=== PATIENT | male | born 1980 | race Two or more races ===

== ENCOUNTER 2021-01-12 08:54 | Inpatient (IN) | payer MEDICAID, OTHER ==
[2021-01-12] VITALS (18 sets, daily range): BP systolic 87–102; BP diastolic 45–66
[~2021-01-12] VITALS: Ht 165.1 cm; Wt 115.2 kg
[2021-01-12 09:49] LABS: Basophils # (auto) 0.1 10 ^3/uL (0-0.2); Basophils % (auto) 0.9 % (0.0-2.0); Eosinophils # (auto) 0.1 10 ^3/uL (0-0.8); Eosinophils % (auto) 1.7 % (0.0-7.0); Lymphocytes # (auto) 0.8 10 ^3/uL (0.4-5.4); Lymphocytes % (auto) 11.8 % (10.0-50.0); Mean Corpuscular Hemoglobin 26.9 pg (28.0-32.0); Mean Corpuscular Hgb Conc. 32.7 g/dL (32.0-36.0); Mean Corpuscular Volume 82.4 fL (80.0-100.0); Monocytes # (auto) 0.7 10 ^3/uL (0-1.3); Monocytes % (auto) 10.7 % (0.0-12.0); Neutrophils % (auto) 74.9 % (37.0-80.0); Nucleated Red Blood Cells % 0.9 %; Platelet Count (auto) 146 10^3/uL (140-450); Red Blood Cells 2.07 10^6/uL (4.5-5.90); White Blood Cell 6.6 10^3/uL (4.4-10.8)
[2021-01-12 09:56] LABS: Red Cell Distribution Width 21.9 % (11.8-14.3)
[2021-01-12 10:05] LABS: Albumin 2.2 g/dL (3.4-5.0); Calcium 7.2 mg/dL (8.5-10.1); Potassium 3.6 mmol/L (3.5-5.1)
[2021-01-12 10:08] LABS: Bilirubin, Total 4.3 mg/dL (0.2-1.0); INR 1.4 (0.9-1.15); Lactic Acid w/Reflex 2.7 mmol/L (0.4-2.0); Total Protein 6.8 g/dL (6.4-8.2)
[2021-01-12 10:10] LABS: Hemoglobin 5.6 g/dL (13.5-17.5)
[2021-01-12] MEDS ORDERED: PANTOPRAZOLE 40 MG/10 ML VIAL INJ IV ONE ×2 (11:15→11:30)
[2021-01-12] MEDS ORDERED: MORPHINE SULF INJ 2 MG/ML SYRINGE 1ML IV PRN ×3 (11:30)
[2021-01-12] MEDS ORDERED: phytonadione 10 MG in SODIUM CHL 0.9% 50 ML IV ONE (11:30)
[2021-01-12] MEDS ORDERED: NITROGLYCERIN 0.4 MG SL TAB SL PRN (11:30)
[2021-01-12] MEDS ORDERED: PROMETHAZINE HCL 25 MG/ML 1ML IV PRN (11:30)
[2021-01-12] MEDS ORDERED: phytonadione 1 ML ONE (11:35)
[2021-01-12] MEDS ORDERED: SODIUM CHLORIDE 0.9% 2,000 ML IV ONE ×2 (11:45→17:45)
[2021-01-12] MEDS: SODIUM CHLORIDE 0.9% 1,000 ML IV SCH ×2 (12:05→22:01)
[2021-01-12 12:13] LABS: Urine Bacteria NONE SEEN /hpf (None Seen); Urine Blood Negative /uL (Negative); Urine Mucus FEW (None Seen); Urine Specific Gravity 1.024 (1.001-1.035); Urine WBC 29 /hpf (0 - 3); Urine WBC Clumps PRESENT /hpf (None Seen)
[2021-01-12] MEDS ORDERED: chlordiazePOXIDE HCL 25 MG CAP PO PRN (12:30)
[2021-01-12] MEDS ORDERED: THIAMINE 100mg/ml INJ (200mg/2ml VIAL) IV ONE (12:30)
[2021-01-12] MEDS ORDERED: OCTREOTIDE ACETATE 100 MCG in SODIUM CHL 0.9% 50 ML IV ONE (12:30)
[2021-01-12 15:15] LABS: Hematocrit 14.1 % (41.0-53.0)
[2021-01-12 15:23] LABS: Hemoglobin 4.6 g/dL (13.5-17.5)
[2021-01-12] MEDS: OCTREOTIDE ACETATE 500 MCG in SODIUM CHL 0.9% 99 ML IV SCH ×2 (16:20→22:30)
[2021-01-12] MEDS: chlordiazePOXIDE HCL 5 MG CAP PO SCH (17:50)
[2021-01-12] MEDS: PANTOPRAZOLE 40 MG/10 ML VIAL INJ IV SCH (22:02)
[2021-01-12] MEDS ORDERED: OCTREOTIDE ACETATE 500 MCG/ML VL ONE (22:56)
[2021-01-13] MEDS: chlordiazePOXIDE HCL 5 MG CAP PO SCH ×5 (00:37→23:55)
[2021-01-13 01:30] VITALS: BP 106/62
[2021-01-13] MEDS: SODIUM CHLORIDE 0.9% 1,000 ML IV SCH ×3 (03:57→19:45)
[2021-01-13 07:07] LABS: Basophils # (auto) 0.1 10 ^3/uL (0-0.2); Lymphocytes # (auto) 0.5 10 ^3/uL (0.4-5.4); Mean Corpuscular Hgb Conc. 32.8 g/dL (32.0-36.0); Monocytes # (auto) 0.6 10 ^3/uL (0-1.3); White Blood Cell 4.7 10^3/uL (4.4-10.8)
[2021-01-13 07:09] LABS: Basophils % (auto) 1.9 % (0.0-2.0); Eosinophils # (auto) 0.3 10 ^3/uL (0-0.8); Eosinophils % (auto) 5.5 % (0.0-7.0); Hematocrit 25.2 % (41.0-53.0); Hemoglobin 8.3 g/dL (13.5-17.5); Lymphocytes % (auto) 10.5 % (10.0-50.0); Mean Corpuscular Hemoglobin 27.8 pg (28.0-32.0); Mean Corpuscular Volume 84.7 fL (80.0-100.0); Monocytes % (auto) 11.8 % (0.0-12.0); Neutrophils # (auto) 3.3 10 ^3/uL (1.6-8.6); Neutrophils % (auto) 70.3 % (37.0-80.0); Nucleated Red Blood Cells % 0.8 %; Platelet Count (auto) 114 10^3/uL (140-450); Red Blood Cells 2.97 10^6/uL (4.5-5.90); Red Cell Distribution Width 18.6 % (11.8-14.3)
[2021-01-13 07:23] LABS: Albumin 2.2 g/dL (3.4-5.0); Potassium 3.8 mmol/L (3.5-5.1)
[2021-01-13 07:29] LABS: BUN/Creatinine Ratio 13.8; Bilirubin, Total 5.5 mg/dL (0.2-1.0); Total Protein 6.3 g/dL (6.4-8.2)
[2021-01-13] MEDS: OCTREOTIDE ACETATE 500 MCG in SODIUM CHL 0.9% 99 ML IV SCH ×2 (09:43→18:30)
[2021-01-13] MEDS: PANTOPRAZOLE 40 MG/10 ML VIAL INJ IV SCH ×2 (09:44→21:40)
[2021-01-13] MEDS: THIAMINE 100mg/ml INJ (200mg/2ml VIAL) IV SCH (09:45)
[2021-01-13] MEDS ORDERED: LIDOCAINE VISCOUS 2% 15ML UD ONE (10:06)
[2021-01-13] MEDS ORDERED: fentaNYL CITRATE 100 MCG/2 ML VL ONE (11:16)
[2021-01-13] MEDS ORDERED: MIDAZOLAM HCL 1MG/1ML-2 ML VIAL ONE (11:17)
[2021-01-13] MEDS ORDERED: DexAMETHasone SOD PHOS 10MG/1ML VIAL INJ ONE (11:18)
[2021-01-13] MEDS ORDERED: PROPOFOL 10 MG/ML 20 ML IV ONE (11:29)
[2021-01-13] MEDS ORDERED: ePHEDrine SULFATE 50 MG/ML AMP IV PRN (12:00)
[2021-01-13] MEDS ORDERED: MIDAZOLAM HCL 1MG/1ML-2 ML VIAL IV PRN (12:00)
[2021-01-13] MEDS ORDERED: HYDROmorphone HCL 2 MG/ML VL IV PRN (12:00)
[2021-01-13] MEDS ORDERED: LABETALOL HCL 5 MG/ML 4ML SYRINGE IV PRN (12:00)
[2021-01-13] MEDS ORDERED: ONDANSETRON HCL 4 MG/2 ML VIAL IV PRN (12:00)
[2021-01-13] MEDS ORDERED: NITROGLYCERIN 0.4 MG SL TAB SL PRN (13:15)
[2021-01-13] MEDS ORDERED: MORPHINE SULF INJ 2 MG/ML SYRINGE 1ML IV PRN (13:15)
[2021-01-13] MEDS: FOLIC ACID 1 MG, MULTIPLE VITAMIN 10 ML, THIAMINE INJ 100 MG in D5W 5% 1,000 ML INJ SCH (14:20)
[2021-01-13 15:44] VITALS: BP 130/72
[2021-01-13 16:48] VITALS: BP 119/69
[2021-01-13 17:10] LABS: Basophils # (auto) 0 10 ^3/uL (0-0.2); Basophils % (auto) 0.5 % (0.0-2.0); Eosinophils # (auto) 0 10 ^3/uL (0-0.8); Eosinophils % (auto) 0.1 % (0.0-7.0); Hematocrit 27.1 % (41.0-53.0); Hemoglobin 8.9 g/dL (13.5-17.5); Lymphocytes # (auto) 0.3 10 ^3/uL (0.4-5.4); Lymphocytes % (auto) 6.7 % (10.0-50.0); Mean Corpuscular Hemoglobin 27.8 pg (28.0-32.0); Mean Corpuscular Hgb Conc. 32.8 g/dL (32.0-36.0); Mean Corpuscular Volume 84.7 fL (80.0-100.0); Monocytes # (auto) 0.1 10 ^3/uL (0-1.3); Monocytes % (auto) 1.6 % (0.0-12.0); Neutrophils # (auto) 4.6 10 ^3/uL (1.6-8.6); Neutrophils % (auto) 91.1 % (37.0-80.0); Nucleated Red Blood Cells % 0.3 %; Platelet Count (auto) 127 10^3/uL (140-450); Red Blood Cells 3.19 10^6/uL (4.5-5.90); Red Cell Distribution Width 18.8 % (11.8-14.3); White Blood Cell 5.1 10^3/uL (4.4-10.8)
[2021-01-13 17:30] LABS: Albumin 2.2 g/dL (3.4-5.0); Calcium 6.8 mg/dL (8.5-10.1); Potassium 3.9 mmol/L (3.5-5.1)
[2021-01-13 17:34] LABS: BUN/Creatinine Ratio 10.4; Bilirubin, Total 5.3 mg/dL (0.2-1.0); Total Protein 6.7 g/dL (6.4-8.2)
[2021-01-13 22:00] VITALS: BP 133/71
[2021-01-14] MEDS ORDERED: TEMAZEPAM 15 MG CAP PO ONE (00:30)
[2021-01-14] MEDS: SODIUM CHLORIDE 0.9% 1,000 ML IV SCH (03:50)
[2021-01-14] MEDS: OCTREOTIDE ACETATE 500 MCG in SODIUM CHL 0.9% 99 ML IV SCH (04:37)
[2021-01-14 04:57] VITALS: BP 118/68
[2021-01-14] MEDS: chlordiazePOXIDE HCL 5 MG CAP PO SCH ×4 (06:01→23:35)
[2021-01-14 08:30] VITALS: BP 109/71
[2021-01-14] MEDS: THIAMINE 100mg/ml INJ (200mg/2ml VIAL) IV SCH (10:09)
[2021-01-14] MEDS: PANTOPRAZOLE 40 MG/10 ML VIAL INJ IV SCH (10:09)
[2021-01-14] MEDS: FOLIC ACID 1 MG, MULTIPLE VITAMIN 10 ML, THIAMINE INJ 100 MG in D5W 5% 1,000 ML INJ SCH (12:26)
[2021-01-14 12:30] VITALS: BP 109/70
[2021-01-14 14:46] LABS: Basophils # (auto) 0 10 ^3/uL (0-0.2); Basophils % (auto) 0.2 % (0.0-2.0); Eosinophils # (auto) 0 10 ^3/uL (0-0.8); Eosinophils % (auto) 0.1 % (0.0-7.0); Hemoglobin 8.6 g/dL (13.5-17.5); Lymphocytes # (auto) 0.4 10 ^3/uL (0.4-5.4); Lymphocytes % (auto) 6.1 % (10.0-50.0); Mean Corpuscular Hemoglobin 28.3 pg (28.0-32.0); Mean Corpuscular Hgb Conc. 33.1 g/dL (32.0-36.0); Mean Corpuscular Volume 85.4 fL (80.0-100.0); Monocytes # (auto) 0.6 10 ^3/uL (0-1.3); Monocytes % (auto) 9.6 % (0.0-12.0); Neutrophils # (auto) 5.2 10 ^3/uL (1.6-8.6); Nucleated Red Blood Cells % 0.4 %; Platelet Count (auto) 128 10^3/uL (140-450); Red Blood Cells 3.04 10^6/uL (4.5-5.90); White Blood Cell 6.2 10^3/uL (4.4-10.8)
[2021-01-14 15:08] LABS: Albumin 1.9 g/dL (3.4-5.0); Calcium 7.2 mg/dL (8.5-10.1); Potassium 3.9 mmol/L (3.5-5.1)
[2021-01-14 15:11] LABS: BUN/Creatinine Ratio 10.1; Bilirubin, Total 3.3 mg/dL (0.2-1.0)
[2021-01-14 17:00] VITALS: BP 110/66
[2021-01-14 22:00] VITALS: BP 107/66
[2021-01-15] MEDS ORDERED: LORazepam 2MG/ML-1ML VIAL IV PRN (01:00)
[2021-01-15 05:12] VITALS: BP 112/70
[2021-01-15] MEDS: chlordiazePOXIDE HCL 5 MG CAP PO SCH (05:12)
[2021-01-15 05:32] LABS: Basophils # (auto) 0 10 ^3/uL (0-0.2); Hemoglobin 8.2 g/dL (13.5-17.5); Neutrophils # (auto) 4.4 10 ^3/uL (1.6-8.6); Nucleated Red Blood Cells % 0.5 %; White Blood Cell 5.8 10^3/uL (4.4-10.8)
[2021-01-15 05:35] LABS: Basophils % (auto) 0.5 % (0.0-2.0); Eosinophils # (auto) 0 10 ^3/uL (0-0.8); Eosinophils % (auto) 0.8 % (0.0-7.0); Hematocrit 24.4 % (41.0-53.0); Lymphocytes # (auto) 0.6 10 ^3/uL (0.4-5.4); Mean Corpuscular Hemoglobin 28.3 pg (28.0-32.0); Mean Corpuscular Hgb Conc. 33.7 g/dL (32.0-36.0); Mean Corpuscular Volume 83.9 fL (80.0-100.0); Monocytes # (auto) 0.7 10 ^3/uL (0-1.3); Monocytes % (auto) 12.2 % (0.0-12.0); Neutrophils % (auto) 75.5 % (37.0-80.0); Platelet Count (auto) 126 10^3/uL (140-450); Red Cell Distribution Width 19.5 % (11.8-14.3)
[2021-01-15 05:51] LABS: Albumin 1.9 g/dL (3.4-5.0); Calcium 7.1 mg/dL (8.5-10.1); Potassium 4.2 mmol/L (3.5-5.1)
[2021-01-15 05:55] LABS: BUN/Creatinine Ratio 16.7; Bilirubin, Total 2.9 mg/dL (0.2-1.0); Total Protein 5.7 g/dL (6.4-8.2)
[2021-01-15 08:30] VITALS: BP 122/69
[2021-01-15] MEDS: THIAMINE 100mg/ml INJ (200mg/2ml VIAL) IV SCH (10:00)
== END 2021-01-15 10:26 | disposition home or self-care (01) | DRG 280 ==
LOC: ER 08:54 → DOU IN ADS 11:27 → OVERFLOW 01-13 07:21 → TELE-WESTW 01-13 15:36
PROVIDERS: ADMIT Internal Medicine; ATTEND Family Medicine
PROC: 30233N1 Transfusion of Nonautologous Red Blood Cells into Peripheral Vein, Percutaneous Approach (ICD-10-PCS; 2021-01-12)
PROC: 30233K1 Transfusion of Nonautologous Frozen Plasma into Peripheral Vein, Percutaneous Approach (ICD-10-PCS; 2021-01-12)
PROC: 06L38CZ Occlusion of Esophageal Vein with Extraluminal Device, Via Natural or Artificial Opening Endoscopic (ICD-10-PCS; principal; 2021-01-13 11:12)
DX: K70.30 Alcoholic cirrhosis of liver without ascites (principal); I85.11 Secondary esophageal varices with bleeding; E43 Unspecified severe protein-calorie malnutrition; K76.6 Portal hypertension; D62 Acute posthemorrhagic anemia; E87.1 Hypo-osmolality and hyponatremia; R16.1 Splenomegaly, not elsewhere classified; Z20.822 Contact with and (suspected) exposure to COVID-19; I86.4 Gastric varices; F10.20 Alcohol dependence, uncomplicated; I86.8 Varicose veins of other specified sites; E66.9 Obesity, unspecified; K31.89 Other diseases of stomach and duodenum; Z68.41 Body mass index [BMI] 40.0-44.9, adult
CPT/HCPCS: 36415; 36430; 74176; 80053; 81001; 83605; 83690; 85014; 85018; 85025; 85045; 85610; 85730; 86850; 86900; 86901; 86920; 87040; 87426; 96365; 96367; 96375; C9113; G0378; J1100; J2250; J2704; J3430

== ENCOUNTER 2021-01-22 13:12 | Inpatient (IN) | payer MEDICAID ==
[~2021-01-22] VITALS: Ht 165.1 cm; Wt 115.0 kg
[2021-01-22] MEDS ORDERED: SODIUM CHLORIDE 0.9% 1,000 ML IV ONE (14:00)
[2021-01-22] MEDS ORDERED: SPIRONOLACTONE 25 MG TAB PO ONE (14:00)
[2021-01-22] MEDS ORDERED: LACTULOSE 20Gm/30ML SOLN PO ONE (14:00)
[2021-01-22] MEDS ORDERED: FUROSEMIDE 20 MG/2 ML VIAL IV ONE (14:00)
[2021-01-22 14:05] LABS: Basophils # (auto) 0.1 10 ^3/uL (0-0.2); Basophils % (auto) 2.1 % (0.0-2.0); Eosinophils # (auto) 0.1 10 ^3/uL (0-0.8); Hemoglobin 9.7 g/dL (13.5-17.5); Mean Corpuscular Hgb Conc. 32.2 g/dL (32.0-36.0); White Blood Cell 6.1 10^3/uL (4.4-10.8)
[2021-01-22 14:16] LABS: Eosinophils % (auto) 2.1 % (0.0-7.0); Lymphocytes # (auto) 0.8 10 ^3/uL (0.4-5.4); Lymphocytes % (auto) 12.9 % (10.0-50.0); Mean Corpuscular Hemoglobin 26.7 pg (28.0-32.0); Mean Corpuscular Volume 82.8 fL (80.0-100.0); Monocytes # (auto) 0.6 10 ^3/uL (0-1.3); Monocytes % (auto) 10.1 % (0.0-12.0); Neutrophils # (auto) 4.4 10 ^3/uL (1.6-8.6); Neutrophils % (auto) 72.8 % (37.0-80.0); Nucleated Red Blood Cells % 0.1 %; Platelet Count (auto) 152 10^3/uL (140-450); Red Blood Cells 3.62 10^6/uL (4.5-5.90)
[2021-01-22 14:17] LABS: Red Cell Distribution Width 21.3 % (11.8-14.3)
[2021-01-22 14:22] LABS: Albumin 2.2 g/dL (3.4-5.0); Calcium 7.7 mg/dL (8.5-10.1); Magnesium 2.3 mg/dL (1.6-2.6); Potassium 3.7 mmol/L (3.5-5.1)
[2021-01-22 14:25] LABS: BUN/Creatinine Ratio 9.4; Bilirubin, Total 2.7 mg/dL (0.2-1.0); Total Protein 7.2 g/dL (6.4-8.2)
[2021-01-22] MEDS ORDERED: MORPHINE SULF INJ 2 MG/ML SYRINGE 1ML IV PRN (15:30)
[2021-01-22] MEDS ORDERED: NITROGLYCERIN 0.4 MG SL TAB SL PRN (15:30)
[2021-01-22] MEDS ORDERED: LACTULOSE 20Gm/30ML SOLN PO PRN (16:00)
[2021-01-22] MEDS ORDERED: levoFLOXacin 500MG 100 ML IV ONE (16:00)
[2021-01-22] MEDS ORDERED: PROMETHAZINE HCL 25 MG/ML 1ML IV PRN (16:00)
[2021-01-22] MEDS ORDERED: traMADol HCL 50 MG TAB PO PRN (16:00)
[2021-01-22 16:02] LABS: INR 1.28 (0.9-1.15); Partial Thromboplastin Time 27.9 sec (23.0-31.2)
[2021-01-22] MEDS: SPIRONOLACTONE 25 MG TAB PO SCH (18:00)
[2021-01-22 22:00] VITALS: BP 106/68
[2021-01-22] MEDS: CLINDAMYCIN 600MG IV 50 ML IV SCH (22:35)
[2021-01-22] MEDS: MORPHINE SULF INJ 2 MG/ML SYRINGE 1ML IV PRN (23:07)
[2021-01-23] VITALS (7 sets, daily range): BP systolic 99–122; BP diastolic 63–77
[2021-01-23] MEDS ORDERED: FURO1TAB33 PO ×2 (00:46)
[2021-01-23] MEDS ORDERED: PANT40T PO ×2 (00:46)
[2021-01-23] MEDS ORDERED: MULT-1058 PO ×2 (00:46)
[2021-01-23] MEDS ORDERED: FERR27TA2 PO ×2 (00:46)
[2021-01-23] MEDS ORDERED: POTA10TA51 PO ×2 (00:46)
[2021-01-23] MEDS ORDERED: FOLI1TAB6 PO ×2 (00:46)
[2021-01-23] MEDS: CLINDAMYCIN 600MG IV 50 ML IV SCH ×2 (05:53→13:55)
[2021-01-23] MEDS: SPIRONOLACTONE 25 MG TAB PO SCH ×2 (06:01→18:31)
[2021-01-23 08:01] LABS: Basophils # (auto) 0.1 10 ^3/uL (0-0.2); Basophils % (auto) 1.9 % (0.0-2.0); Eosinophils # (auto) 0.1 10 ^3/uL (0-0.8); Eosinophils % (auto) 2.4 % (0.0-7.0); Hematocrit 27.5 % (41.0-53.0); Hemoglobin 8.8 g/dL (13.5-17.5); Lymphocytes # (auto) 0.7 10 ^3/uL (0.4-5.4); Lymphocytes % (auto) 14.4 % (10.0-50.0); Mean Corpuscular Hemoglobin 26.5 pg (28.0-32.0); Mean Corpuscular Volume 82.7 fL (80.0-100.0); Monocytes # (auto) 0.7 10 ^3/uL (0-1.3); Monocytes % (auto) 14.1 % (0.0-12.0); Neutrophils # (auto) 3.4 10 ^3/uL (1.6-8.6); Neutrophils % (auto) 67.2 % (37.0-80.0); Nucleated Red Blood Cells % 0.1 %; Platelet Count (auto) 125 10^3/uL (140-450); Red Blood Cells 3.32 10^6/uL (4.5-5.90); Red Cell Distribution Width 21.6 % (11.8-14.3); White Blood Cell 5.1 10^3/uL (4.4-10.8)
[2021-01-23 08:16] LABS: Anion Gap 5 (5-15); Blood Urea Nitrogen 7 mg/dL (7-18); Calcium 7.6 mg/dL (8.5-10.1); Carbon Dioxide 25 mmol/L (21-32); Chloride 106 mmol/L (98-107); Potassium 3.7 mmol/L (3.5-5.1); Sodium 136 mmol/L (136-145)
[2021-01-23 08:19] LABS: Alanine Aminotransferase 36 U/L (16-61); Aspartate Aminotransferase 62 U/L (15-37); BUN/Creatinine Ratio 12.3; GFR African American 206 mL/min; GFR Non-African American 170 mL/min; Glucose 79 mg/dL (74-106)
[2021-01-23 08:24] LABS: Alkaline Phosphatase 124 U/L (45-117); Bilirubin, Total 2.9 mg/dL (0.2-1.0)
[2021-01-23] MEDS: ENOXAPARIN SOD 40 MG/0.4 ML SYRINGE SC SCH (09:47)
[2021-01-23] MEDS: PANTOPRAZOLE 40 MG TAB PO SCH (09:47)
[2021-01-23] MEDS: FUROSEMIDE 40 MG/4 ML VIAL IV SCH (09:49)
[2021-01-23] MEDS ORDERED: levoFLOXacin 500MG 100 ML IV SCH (10:00)
[2021-01-23 10:52] LABS: Urine Bacteria NONE SEEN /hpf (None Seen); Urine Blood TRACE /uL (Negative); Urine Specific Gravity 1.007 (1.001-1.035); Urine WBC 2 /hpf (0 - 3)
[2021-01-23] MEDS ORDERED: IOHEXOL 300 MG/ML 100ML BOTTLE IJ ONE ×2 (11:17→14:19)
[2021-01-23] MEDS: ALBUMIN 25% 100 ML IV SCH ×3 (11:27→23:25)
[2021-01-23 11:34] LABS: Amphetamine Screen, Urine NEGATIVE (NEGATIVE); Barbiturate Scree,Urine NEGATIVE (NEGATIVE); Benzodiazephine Screen, Urine POSITIVE (NEGATIVE); Cannabinoid Screen, Urine NEGATIVE (NEGATIVE); Cocaine Screen, Urine NEGATIVE (NEGATIVE); Opiate Scree,Urine NEGATIVE (NEGATIVE); Phencyclidine Screen, Urine NEGATIVE (NEGATIVE)
[2021-01-23] MEDS: MORPHINE SULF INJ 2 MG/ML SYRINGE 1ML IV PRN (23:26)
[2021-01-24] VITALS (10 sets, daily range): BP systolic 99–136; BP diastolic 50–94
[2021-01-24 05:12] LABS: Basophils # (auto) 0.1 10 ^3/uL (0-0.2); Basophils % (auto) 1.6 % (0.0-2.0); Eosinophils # (auto) 0.1 10 ^3/uL (0-0.8); Eosinophils % (auto) 3.2 % (0.0-7.0); Hematocrit 25.4 % (41.0-53.0); Hemoglobin 8.2 g/dL (13.5-17.5); Lymphocytes # (auto) 0.8 10 ^3/uL (0.4-5.4); Lymphocytes % (auto) 17.4 % (10.0-50.0); Mean Corpuscular Hemoglobin 26.5 pg (28.0-32.0); Mean Corpuscular Hgb Conc. 32.1 g/dL (32.0-36.0); Mean Corpuscular Volume 82.6 fL (80.0-100.0); Monocytes # (auto) 0.7 10 ^3/uL (0-1.3); Neutrophils # (auto) 2.8 10 ^3/uL (1.6-8.6); Neutrophils % (auto) 62.8 % (37.0-80.0); Nucleated Red Blood Cells % 0.1 %; Platelet Count (auto) 118 10^3/uL (140-450); Red Blood Cells 3.08 10^6/uL (4.5-5.90); Red Cell Distribution Width 21.9 % (11.8-14.3); White Blood Cell 4.4 10^3/uL (4.4-10.8)
[2021-01-24 05:31] LABS: Albumin 2.4 g/dL (3.4-5.0); BUN/Creatinine Ratio 13.7; Calcium 7.9 mg/dL (8.5-10.1); Potassium 3.6 mmol/L (3.5-5.1)
[2021-01-24 05:38] LABS: Bilirubin, Total 2.6 mg/dL (0.2-1.0)
[2021-01-24] MEDS: SPIRONOLACTONE 25 MG TAB PO SCH ×2 (06:20→18:05)
[2021-01-24] MEDS: ENOXAPARIN SOD 40 MG/0.4 ML SYRINGE SC SCH (10:00)
[2021-01-24] MEDS: FUROSEMIDE 40 MG/4 ML VIAL IV SCH (10:37)
[2021-01-24] MEDS: PANTOPRAZOLE 40 MG TAB PO SCH (10:37)
[2021-01-24] MEDS: MORPHINE SULF INJ 2 MG/ML SYRINGE 1ML IV PRN (10:46)
[2021-01-24] MEDS: PROPRANOLOL HCL 20 MG TAB PO SCH (21:50)
[2021-01-25] MEDS: MORPHINE SULF INJ 2 MG/ML SYRINGE 1ML IV PRN (01:29)
[2021-01-25 05:00] VITALS: BP 92/57
[2021-01-25 05:23] LABS: Hematocrit 27.1 % (41.0-53.0); Hemoglobin 8.9 g/dL (13.5-17.5)
[2021-01-25] MEDS: SPIRONOLACTONE 25 MG TAB PO SCH (05:33)
[2021-01-25 05:43] LABS: Calcium 7.9 mg/dL (8.5-10.1); Potassium 3.9 mmol/L (3.5-5.1)
[2021-01-25 05:45] LABS: BUN/Creatinine Ratio 16.7
[2021-01-25 09:00] VITALS: BP 104/62
[2021-01-25] MEDS ORDERED: ALBUMIN 25% 100 ML IV ONE (09:30)
[2021-01-25] MEDS: FUROSEMIDE 40 MG/4 ML VIAL IV SCH (11:08)
[2021-01-25] MEDS: PANTOPRAZOLE 40 MG TAB PO SCH (11:09)
[2021-01-25] MEDS: PROPRANOLOL HCL 20 MG TAB PO SCH (11:11)
[2021-01-25 13:00] VITALS: BP 95/70
[2021-01-25] MEDS ORDERED: FURO40TA4 PO ×2 (13:44)
[2021-01-25] MEDS ORDERED: SPIR100T4 PO ×2 (13:44)
[2021-01-25 15:02] VITALS: BP 95/70
== END 2021-01-25 16:09 | disposition home or self-care (01) | DRG 280 ==
LOC: ER 13:12 → TELE 15:29 → TELE-CENTR 19:57
PROVIDERS: ADMIT Internal Medicine; ATTEND Internal Medicine
PROC: 0W9G30Z Drainage of Peritoneal Cavity with Drainage Device, Percutaneous Approach (ICD-10-PCS; principal; 2021-01-24)
DX: K70.31 Alcoholic cirrhosis of liver with ascites (principal); I50.33 Acute on chronic diastolic (congestive) heart failure; E43 Unspecified severe protein-calorie malnutrition; D68.9 Coagulation defect, unspecified; D69.59 Other secondary thrombocytopenia; E66.01 Morbid (severe) obesity due to excess calories; I85.10 Secondary esophageal varices without bleeding; K76.6 Portal hypertension; R16.2 Hepatomegaly with splenomegaly, not elsewhere classified; D64.9 Anemia, unspecified; Z20.822 Contact with and (suspected) exposure to COVID-19; Z79.899 Other long term (current) drug therapy; Z87.11 Personal history of peptic ulcer disease; F10.99 Alcohol use, unspecified with unspecified alcohol-induced disorder; Y90.9 Presence of alcohol in blood, level not specified; N50.89 Other specified disorders of the male genital organs; N49.2 Inflammatory disorders of scrotum
CPT/HCPCS: 36415; 71046; 74176; 74177; 76700; 76942; 80048; 80053; 80307; 81001; 82040; 82105; 82140; 82550; 83615; 83690; 83735; 83880; 83986; 84443; 84484; 85014; 85018; 85025; 85610; 85730; 87081; 87205; 87426; 89051; 93005; 93306; 93970; 96361; 96365; 96375; G0378; J1956; J3490; P9047